=== PATIENT | female | born 1945 | race Caucasian/White ===

== ENCOUNTER 2022-03-29 15:27 | Emergency (ER) | payer MEDICARE, MEDICAID ==
[~2022-03-29] VITALS: Ht 162.6 cm; Wt 63.5 kg
[2022-03-29 15:37] VITALS: BP 126/49
== END 2022-03-29 17:19 | disposition home or self-care (01) ==
LOC: ER 15:28
DX: R58 Hemorrhage, not elsewhere classified (principal); M79.89 Other specified soft tissue disorders; I21.9 Acute myocardial infarction, unspecified
CPT/HCPCS: 99284